=== PATIENT | female | born 1980 | race African-American/Black ===

== ENCOUNTER 2017-09-27 11:49 | Inpatient (IN) | payer OTHER, MEDICAID ==
[~2017-09-27] VITALS: Ht 160 cm; Wt 57.2 kg
[2017-09-27] MEDS ORDERED: ASPIRIN 81MG TABLET PO STA (12:51)
[2017-09-27] MEDS ORDERED: NITROGLYCERIN 0.4MG TABLET SL SL PRN (13:00)
[2017-09-27] MEDS ORDERED: METOCLOPRAMIDE HCL 10MG/2ML VIAL IV ONE (13:00)
[2017-09-27] MEDS ORDERED: DIPHENHYDRAMINE 50MG/ML VIAL IV ONE (13:00)
[2017-09-27 14:34] LABS: BASOPHILS % 0.7 % (0.0-2.0); EOSINOPHILS % 0.1 % (0.0-5.0); HEMATOCRIT. 35.6 % (36.0-48.0); MEAN CORPUSCULAR HEMOGLOBIN 25.7 pg (28.0-32.0); MEAN PLATELET VOLUME 7.4 fl (7.4-10.4); MONOCYTES % 6.6 % (2.0-8.0); NEUTROPHILS % 64.6 % (40.0-76.0); PLATELET 279 x1000/uL (130-400); RED BLOOD CELL COUNT 4.68 mill/uL (4.2-5.4); RED CELL DISTRIBUTION WIDTH 15.2 % (11.6-14.6)
[2017-09-27 14:36] LABS: CHLORIDE 104 mEq/L (98-107)
[2017-09-27 14:40] LABS: D-DIMER 0.32 mg/L FEU (<0.50); PARTIAL THROMBOPLASTIN TIME 25.1 sec (23.4-31.0); PROTHROMBIN TIME 10.8 sec (9.4-11.6)
[2017-09-27] MEDS ORDERED: POTASSIUM CHLORIDE 20MEQ TABLET SR PO ONE (14:45)
[2017-09-27 15:00] LABS: HCG SCREEN NEGATIVE
[2017-09-27] MEDS ORDERED: NA PHOS,M-B/NA PHOS,DI-BA ENEMA 118ML PR PRN (17:30)
[2017-09-27] MEDS ORDERED: CLONIDINE 0.1MG TABLET PO PRN (17:30)
[2017-09-27] MEDS ORDERED: IPRATROPIUM/ALBUTEROL 0.5-3(2.5)MG/3ML NEB INH PRN (17:30)
[2017-09-27] MEDS ORDERED: HYDROCODONE/ACETAMINOPHEN 5/325MG TABLET PO PRN (17:30)
[2017-09-27] MEDS ORDERED: MAGNESIUM/ALUMINUM HYDROXIDE/SIMETHICONE 30ML UDC PO PRN (17:30)
[2017-09-27] MEDS ORDERED: ONDANSETRON HCL 4MG/2ML VIAL IV PRN (17:30)
[2017-09-27] MEDS ORDERED: ACETAMINOPHEN 325MG TABLET PO PRN (17:30)
[2017-09-27 19:45] VITALS: BP 103/59
[2017-09-27 23:44] LABS: CREATINE KINASE 71 IU/L (26-192)
[2017-09-27 23:45] LABS: CREATINE KINASE MB FRACTION 1.3 ng/mL (0.5-3.6)
[2017-09-28 00:08] VITALS: BP 106/77
[2017-09-28 04:45] VITALS: BP 130/87
[2017-09-28 06:31] LABS: BASOPHILS % 0.6 % (0.0-2.0); EOSINOPHILS % 0.9 % (0.0-5.0); HEMATOCRIT. 36.1 % (36.0-48.0); HEMOGLOBIN. 12.1 g/dL (12.0-16.0); LYMPHOCYTES % 38.3 % (20.0-50.0); MEAN CORPUSCULAR HEMOGLOBIN 25.4 pg (28.0-32.0); MEAN CORPUSCULAR VOLUME 75.7 fL (81.0-99.0); MEAN PLATELET VOLUME 7.5 fl (7.4-10.4); MONOCYTES % 7.7 % (2.0-8.0); NEUTROPHILS % 52.5 % (40.0-76.0); PLATELET 270 x1000/uL (130-400); RED BLOOD CELL COUNT 4.77 mill/uL (4.2-5.4); RED CELL DISTRIBUTION WIDTH 15.2 % (11.6-14.6)
[2017-09-28 06:35] LABS: CHLORIDE 107 mEq/L (98-107)
[2017-09-28 06:51] LABS: LDL CHOLESTEROL 73 mg/dL (5-100)
[2017-09-28 06:52] LABS: CREATINE KINASE 67 IU/L (26-192); CREATINE KINASE MB FRACTION 1.2 ng/mL (0.5-3.6)
[2017-09-28 06:53] LABS: HDL CHOLESTEROL 55 mg/dL (40-59)
[2017-09-28 08:00] VITALS: BP 107/70
[2017-09-28] MEDS ORDERED: ASPIRIN 81MG EC TABLET PO SCH (09:00)
[2017-09-28 12:40] VITALS: BP 106/53
[2017-09-28 15:00] VITALS: BP 110/80
== END 2017-09-28 15:25 | disposition home or self-care (01) | DRG 103 ==
LOC: ER 11:49 → 6WST 16:37 → EDBEDREQ 16:39 → EDBEDREQTM 16:39 → ENRESERV 16:49 → SUPCPDRO 17:19
PROVIDERS: ADMIT Internal Medicine; ATTEND Internal Medicine
DX: R51 Headache (principal); D68.59 Other primary thrombophilia; R07.89 Other chest pain; E87.6 Hypokalemia; M79.604 Pain in right leg; M79.605 Pain in left leg; Z87.01 Personal history of pneumonia (recurrent)
CPT/HCPCS: 36415; 70450; 71045; 80053; 80061; 82550; 82553; 84439; 84443; 84484; 84703; 85025; 85379; 85610; 85730; 93005; 93306; 93970; 96374; 96375; 99285; J1200; J2765

== ENCOUNTER 2018-09-29 19:13 | Emergency (ER) | payer MEDICAID, OTHER ==
[~2018-09-29] VITALS: Ht 162.6 cm; Wt 61.0 kg
[2018-09-29 22:46] VITALS: BP 135/84
== END 2018-09-29 22:47 | disposition home or self-care (01) ==
LOC: ER 19:13
DX: J02.8 Acute pharyngitis due to other specified organisms (principal)
CPT/HCPCS: 99283

== ENCOUNTER 2019-08-08 21:10 | Emergency (ER) | payer BC, MEDICAID ==
[~2019-08-08] VITALS: Ht 160 cm; Wt 64.0 kg
[2019-08-08] MEDS ORDERED: IBUPROFEN 400MG TABLET PO ONE (23:15)
[2019-08-08 23:55] LABS: BASOPHILS % 0.8 % (0.0-2.0); HEMATOCRIT. 32.6 % (36.0-48.0); LYMPHOCYTES % 24.3 % (20.0-50.0); MEAN CORPUSCULAR HEMOGLOBIN 24.7 pg (28.0-32.0); MEAN CORPUSCULAR VOLUME 73.4 fL (81.0-99.0); MEAN PLATELET VOLUME 7.1 fl (7.4-10.4); MONOCYTES % 5.3 % (2.0-8.0); NEUTROPHILS % 68.6 % (40.0-76.0); PLATELET 293 x1000/uL (130-400); RED BLOOD CELL COUNT 4.44 mill/uL (4.2-5.4); RED CELL DISTRIBUTION WIDTH 13.9 % (11.6-14.6)
[2019-08-08 23:59] LABS: CHLORIDE 108 mEq/L (98-107)
[2019-08-09] LABS: HCG SCREEN NEGATIVE
[2019-08-09 01:47] LABS: CLARITY URINE CLOUDY (CLEAR); COLOR URINE YELLOW (YELLOW); KETONES URINE 3+ (NEGATIVE); LEUKOCYTE ESTERASE URINE TRACE (NEGATIVE); NITRITE URINE NEGATIVE (NEGATIVE); OCCULT BLOOD URINE 2+ (NEGATIVE); PROTEIN URINE TRACE (NEGATIVE); SPECIFIC GRAVITY URINE 1.027 (1.005-1.030)
[2019-08-09] MEDS ORDERED: LIDOCAINE HCL 1% 20ML VIAL (Pyxis) INJ INFIL ONE (02:30)
[2019-08-09] MEDS ORDERED: CEFTRIAXONE SODIUM 1 G/VIAL IM ONE (02:30)
[2019-08-09 02:57] VITALS: BP 139/91
== END 2019-08-09 03:30 | disposition home or self-care (01) ==
LOC: ER 21:10
DX: N30.90 Cystitis, unspecified without hematuria (principal); Z98.890 Other specified postprocedural states
CPT/HCPCS: 36415; 74176; 80053; 81003; 81025; 83690; 84703; 85025; 96372; 99284; J0696; J3490

== ENCOUNTER 2021-10-15 18:46 | Emergency (ER) | payer BC, MEDICAID ==
[~2021-10-15] VITALS: Ht 160 cm; Wt 73.0 kg
[2021-10-15 19:47] LABS: BASOPHILS % 0.4 % (0.0-2.0); EOSINOPHILS % 0.1 % (0.0-5.0); HEMATOCRIT. 42.3 % (36.0-48.0); HEMOGLOBIN. 14.2 g/dL (12.0-16.0); LYMPHOCYTES % 16.4 % (20.0-50.0); MEAN CORPUSCULAR HEMOGLOBIN 26.4 pg (28.0-32.0); MEAN CORPUSCULAR VOLUME 78.5 fL (81.0-99.0); MEAN PLATELET VOLUME 7.1 fl (7.4-10.4); MONOCYTES % 2.6 % (2.0-8.0); NEUTROPHILS % 80.5 % (40.0-76.0); PLATELET 369 x1000/uL (130-400); RED BLOOD CELL COUNT 5.39 mill/uL (4.2-5.4); RED CELL DISTRIBUTION WIDTH 13.5 % (11.6-14.6)
[2021-10-15 19:52] LABS: CHLORIDE 105 mEq/L (98-107)
[2021-10-15] MEDS ORDERED: KETOROLAC 30MG/ML VIAL IV STA (21:57)
[2021-10-15] MEDS ORDERED: SODIUM CHLORIDE 0.9% 1,000 ML IV ONE (22:00)
[2021-10-15] MEDS ORDERED: ASPIRIN 81MG TABLET PO ONE (22:00)
[2021-10-15 22:06] LABS: CLARITY URINE CLOUDY (CLEAR); COLOR URINE YELLOW (YELLOW); KETONES URINE 3+ (NEGATIVE); LEUKOCYTE ESTERASE URINE TRACE (NEGATIVE); NITRITE URINE NEGATIVE (NEGATIVE); OCCULT BLOOD URINE 3+ (NEGATIVE); PROTEIN URINE 1+ (NEGATIVE); SPECIFIC GRAVITY URINE 1.027 (1.005-1.030); UROBILINOGEN URINE 0.2 E.U./dL (0.2-1.0)
[2021-10-15 22:20] VITALS: BP 159/104
[2021-10-15 22:51] LABS: *AMPHETAMINES SCREEN URINE NEGATIVE (NEGATIVE); *BARBITURATES SCREEN URINE NEGATIVE (NEGATIVE); *BENZODIAZEPINES SCREEN URINE NEGATIVE (NEGATIVE); CANNABINOID URINE SCREEN NEGATIVE (NEGATIVE); METHADONE URINE SCREEN NEGATIVE (NEGATIVE); OPIATES URINE SCREEN NEGATIVE (NEGATIVE); PHENCYCLIDINE URINE SCREEN NEGATIVE (NEGATIVE)
[2021-10-15 22:54] LABS: *COCAINE SCREEN URINE PRESUMTIVE POSITIVE (NEGATIVE)
[2021-10-15] MEDS ORDERED: NITR-87 MT (23:36)
== END 2021-10-15 23:42 | disposition home or self-care (01) ==
LOC: ER 18:46
DX: R07.89 Other chest pain (principal); N39.0 Urinary tract infection, site not specified
CPT/HCPCS: 36415; 71045; 80053; 80305; 81003; 81025; 83690; 83880; 84484; 85025; 85379; 93005; 96361; 96374; 99285; J1885; J7030